=== PATIENT | female | born 2000 | race Caucasian/White ===

== ENCOUNTER 2018-08-21 13:49 | Emergency (ER) | payer OTHER ==
[2018-08-21 13:57] VITALS: BP 136/73
--- NOTE | 2018-08-21 14:28 | ER Document Report ---
ED General - General Chief Complaint: Abdominal Pain Stated Complaint: ABDOMINAL PAIN Time Seen by Provider: 08/21/18 14:07 Mode of Arrival: Ambulatory Information source: Patient Cannot obtain history due to: Unstable vital signs Notes: Chief complaint: Abdominal pain History of complain:( obtained from----patient) 18 years old female suddenly stood up from a seated position felt sharp pain over the right lower abdominal region. She has similar pain 2 months ago and was completely evaluated with CTs and colonoscopy with no positive finding. The pain is increased in intensity whenever she moves around. Which is sharp. Onset: As above Duration: Just prior to arrival Severity: Moderate Quality: Sharp Context: Strain Exacerbating factor and relieving factors: Movement REVIEW OF SYSTEMS: CONSTITUTIONAL : Denies fever, chills, or sweats. Denies recent illness. EENT: Denies eye, ear, throat, or mouth pain or symptoms. Denies nasal or sinus congestion or discharge. Denies throat, tongue, or mouth swelling or difficulty swallowing. CARDIOVASCULAR: Denies chest pain. Denies palpitations or racing or irregular heart beat. Denies ankle edema. RESPIRATORY: Denies cough, cold, or chest congestion. Denies shortness of breath, difficulty breathing, or wheezing. GASTROINTESTINAL: Denies distention. Denies nausea, vomiting, or diarrhea. Denies blood in vomitus, stools, or per rectum. Denies black, tarry stools. Denies constipation. GENITOURINARY: Denies difficulty urinating, painful urination, burning, frequency, blood in urine, or discharge. FEMALE GENITOURINARY: Denies vaginal bleeding, heavy or abnormal periods, irregular periods. Denies vaginal discharge or odor. MUSCULOSKELETAL: Denies back or neck pain or stiffness. Denies joint pain or swelling. SKIN: Denies rash, lesions or sores. HEMATOLOGIC : Denies easy bruising or bleeding. LYMPHATIC: Denies swollen, enlarged glands. NEUROLOGICAL: Denies confusion or altered mental status. Denies passing out or loss of consciousness. Denies dizziness or lightheadedness. Denies headache. Denies weakness or paralysis or loss of use of either side. Denies problems with gait or speech. Denies sensory loss, numbness, or tingling. Denies seizures. PSYCHIATRIC: Denies anxiety or stress. Denies depression, suicidal ideation, or homicidal ideation. ALL OTHER SYSTEMS REVIEWED AND NEGATIVE. PHYSICAL EXAMINATION: GENERAL: Well-appearing, well-nourished and in no acute distress. HEAD: Atraumatic, normocephalic. EYES: Pupils equal round and reactive to light, extraocular movements intact, conjunctiva are normal. ENT: Nares patent, oropharynx clear without exudates. Moist mucous membranes. NECK: Normal range of motion, supple without lymphadenopathy LUNGS: Breath sounds clear to auscultation bilaterally and equal. No wheezes rales or rhonchi. HEART: Regular rate and rhythm without murmurs ABDOMEN: Sharp tenderness over the right lower rectus abdominal muscles are noted. Soft, nontender, nondistended abdomen. No guarding, no rebound. No masses appreciated. Examination of genitals-deferred Musculoskeletal: Normal range of motion, no pitting or edema. No cyanosis. NEUROLOGICAL: Cranial nerves grossly intact. Normal speech, normal gait. Normal sensory, motor exams PSYCH: Normal mood, normal affect. SKIN: Warm, Dry, normal turgor, no rashes or lesions noted. Dictation was performed using [employer] voice recognition software TRAVEL OUTSIDE OF THE [place] IN LAST 30 DAYS: No - HPI Notes: Dictated - Related Data Allergies/Adverse Reactions: latex Allergy (Verified 08/21/18 13:53) morphine Allergy (Verified 08/21/18 13:53) Sulfa (Sulfonamide Antibiotics) Allergy (Verified 08/21/18 13:53) Past Medical History - Social History Smoking Status: Never Smoker Chew tobacco use (# tins/day): No Frequency of alcohol use: Occasional Drug Abuse: None Lives with: Family Family History: Reviewed & Not Pertinent Patient has suicidal ideation: No Patient has homicidal ideation: No Renal/ Medical History: Denies: Hx Peritoneal Dialysis Past Surgical History: Reports: Hx Kidney (Renal Surgery) Review of Systems - Review of Systems Notes: Dictated Physical Exam - Vital signs Vitals: Temp Pulse Resp BP Pulse Ox 97.6 F 113 H 18 136/73 H 98 08/21/18 13:56 08/21/18 13:56 08/21/18 13:56 08/21/18 13:56 08/21/18 13:56 - Notes Notes: Dictated Course - Vital Signs Vital signs: Temp Pulse Resp BP Pulse Ox 97.6 F 113 H 18 136/73 H 98 08/21/18 13:56 08/21/18 13:56 08/21/18 13:56 08/21/18 13:56 08/21/18 13:56 Discharge - Discharge Clinical Impression: Strain of rectus abdominis muscle Qualifiers: Encounter type: initial encounter Qualified Code(s): S39.011A - Strain of muscle, fascia and tendon of abdomen, initial encounter Condition: Fair Instructions: Abdominal Pain ([facility]) Prescriptions: Baclofen [Baclofen 10 mg Tablet] 10 mg PO TID #30 tab Diazepam [Valium 2 mg Tablet] 2 mg PO QSHIFT #7 tablet Prednisone [Deltasone] 20 mg PO DAILY #5 tablet
== END 2018-08-21 14:28 | disposition home or self-care (01) ==
LOC: ER 13:49
DX: S39.011A Strain of muscle, fascia and tendon of abdomen, initial encounter (principal); X58.XXXA Exposure to other specified factors, initial encounter; Z91.040 Latex allergy status; Z88.6 Allergy status to analgesic agent; Z88.2 Allergy status to sulfonamides
CPT/HCPCS: 99284

== ENCOUNTER 2020-11-03 13:00 | Emergency (ER) | payer OTHER ==
--- NOTE | 2020-11-03 14:27 | ER Document Report ---
ED Medical Screen (RME) - General Chief Complaint: Leg Swelling Stated Complaint: RIGHT LEG SWELLING Primary Care Provider: MATT HINDS MD [Primary Care Provider] - Follow up as needed TRAVEL OUTSIDE OF THE [place] IN LAST 30 DAYS: No - HPI Notes: 11/03/20 14:27 Rapid Medical Exam HPI: 20-year-old female who is 33 weeks presents to the ER complaining of right lower extremity swelling and pain for the past couple days. She has noticed bilateral pedal edema recently but right leg is more significant and does have aching pain to it. She spoke with her OB and they recommended that she go to the emergency room to have an ultrasound to rule out a DVT. No history of DVT. She denies chest pains or shortness of breath changes. She does have some baseline shortness of breath related to light without sudden change. Of note in triage she does have a systolic blood pressure around 134. She has no history of hypertension or preeclampsia that she is aware of. I discussed this with the patient and she did say that her OB did have concerns of that and the plan on further evaluating it once they rule out a DVT. She sees [facility]. Patient abdominal pain/cramping/vaginal bleeding/fevers. Physical Exam: GENERAL: Well-appearing, well-nourished and in no acute distress. HEAD: Atraumatic, normocephalic. ENT: Moist mucous membranes. RESP: Respirations even and unlabored CV- Regular rate. NEURO: No focal neurological deficits. Moves all extremities spontaneously and on command. My involvement in this patients care was limited to a rapid initial assessment. A comprehensive ED assessment and evaluation of the patient, analysis of test results, treatment, and completion of the medical decision making process will be performed by other ER providers. - Related Data Allergies/Adverse Reactions: ciprofloxacin [From Cipro] Allergy (Verified 11/03/20 14:19) latex Allergy (Verified 08/21/18 13:53) morphine Allergy (Verified 08/21/18 13:53) oxycodone Allergy (Verified 11/03/20 14:19) Sulfa (Sulfonamide Antibiotics) Allergy (Verified 08/21/18 13:53) Past Medical History Renal/ Medical History: Denies: Hx Peritoneal Dialysis Past Surgical History: Reports: Hx Kidney (Renal Surgery) Physical Exam - Vital signs Vitals: Temp Pulse Resp BP Pulse Ox 98.6 F 91 18 134/68 H 100 11/03/20 13:21 11/03/20 13:21 11/03/20 13:21 11/03/20 13:21 11/03/20 13:21 Course - Vital Signs Vital signs: Temp Pulse Resp BP Pulse Ox 98.6 F 91 18 134/68 H 100 11/03/20 13:21 11/03/20 13:21 11/03/20 13:21 11/03/20 13:21 11/03/20 13:21 Doctor's Discharge - Discharge Referrals: MATT HINDS MD [Primary Care Provider] - Follow up as needed
[2020-11-03 15:17] LABS: HEMATOCRIT 31.9 % (36.0-47.0); HEMOGLOBIN 10.8 g/dL (12.0-15.5); MEAN CORPUSCULAR HEMOGLOBIN 30.6 pg (27.0-33.4); MEAN CORPUSCULAR HGB CONC 33.9 g/dL (32.0-36.0); MEAN CORPUSCULAR VOLUME 90 fl (80-97); PLATELET COUNT 208 10^3/uL (150-450); RED BLOOD COUNT 3.53 10^6/uL (3.72-5.28); RED CELL DISTRIBUTION WIDTH 13.9 % (11.5-14.0); WHITE BLOOD COUNT 12.5 10^3/uL (4.0-10.5)
[2020-11-03 15:35] LABS: ABSOLUTE LYMPHOCYTES# (MANUAL) 1.4 10^3/uL (0.5-4.7); ABSOLUTE MONOCYTES # (MANUAL) 0.6 10^3/uL (0.1-1.4); APPEARANCE,URINE SLIGHTLY-CLOUDY; BAND NEUTROPHILS % (MANUAL) 2 % (3-5); BASOPHILS % (MANUAL) 0 % (0-2); BILIRUBIN,URINE NEGATIVE (NEGATIVE); BLOOD UREA NITROGEN 3 mg/dL (7-20); CALCIUM 9.2 mg/dL (8.4-10.2); CARBON DIOXIDE 25 mmol/L (22-30); CHLORIDE 109 mmol/L (98-107); COLOR,URINE YELLOW; EOSINOPHILS % (MANUAL) 0 % (0-6); GLUCOSE 93 mg/dL (75-110); GLUCOSE, URINE 50 mg/dL (NEGATIVE); KETONES,URINE NEGATIVE (NEGATIVE); LEUKOCYTE ESTERASE,URINE TRACE (NEGATIVE); LYMPHOCYTES % (MANUAL) 11 % (13-45); METAMYELOCYTES % (MANUAL) 1 % (0-1); MONOCYTES % (MANUAL) 5 % (3-13); NITRITE,URINE NEGATIVE (NEGATIVE); POTASSIUM 3.4 mmol/L (3.6-5.0); PROTEIN,URINE NEGATIVE (NEGATIVE); SEGMENTED NEUTROPHILS % (MAN) 81 % (42-78); TOTAL CELLS COUNTED 100; URINE SPECIFIC GRAVITY 1.009; UROBILINOGEN,URINE NEGATIVE mg/dL (<2.0)
[2020-11-03 15:36] LABS: PLATELET COMMENT ADEQUATE; POLYCHROMASIA SLIGHT; TOXIC GRANULATION SLIGHT
[2020-11-03 15:57] LABS: ANION GAP 3 (5-19)
--- NOTE | 2020-11-03 16:06 | RADIOLOGY REPORT (SQ) ---
EXAM DESCRIPTION: VENOUS UNILATERAL LOWER IMAGES COMPLETED DATE/TIME: 11/03/2020 3:54 pm REASON FOR STUDY: right lower leg swelling COMPARISON: None. TECHNIQUE: Dynamic and static ramon scale and color images acquired of the right leg venous system. S elected spectral images acquired with additional compression and augmentation maneuvers. The contrala teral common femoral vein and saphenofemoral junction were also imaged. Images stored on PACS. LIMITATIONS: None. FINDINGS: COMMON FEMORAL: Normal phasicity, compression and augmentation. No visualized echogenic ma terial on ramon scale. No defects on color images. FEMORAL: Normal compression and augmentation. No visualized echogenic material on ramon scale. No defe cts on color images. POPLITEAL: Normal compression, augmentation. No visualized echogenic material on ramon scale. No defec ts on color images. CALF VESSELS: Normal compression, augmentation. No visualized echogenic material on ramon scale. No de fects on color images. GSV and SSV: Normal compression, augmentation. No visualized echogenic material on ramon scale. No def ects on color images. ANY DEEP VENOUS INSUFFICIENCY: Not evaluated. ANY EVIDENCE OF POPLITEAL CYST: No. OTHER: No other significant finding. CONTRALATERAL COMMON FEMORAL VEIN AND SAPHENOFEMORAL JUNCTION: Normal phasicity, compression and augmentation. No visualized echogenic material on ramon scale. No de fects on color images. IMPRESSION: NO EVIDENCE OF DVT OR SVT IN THE RIGHT LEG. TECHNICAL DOCUMENTATION: JOB ID: [id number] 2010 [employer]- All Rights Reserved Reading location - IP/workstation name: [email or web address]
[2020-11-03] MEDS ORDERED: POTASSIUM CHLORIDE 20 MEQ PACKET PO ONE (16:47)
--- NOTE | 2020-11-03 16:56 | ER Document Report ---
Entered by WESTLEY STARR SCRIBE 11/03/20 [id number] Acting as scribe for:SHEYLA SUTTON DO ED General - General Chief Complaint: OB Problem (>20wk) Stated Complaint: RIGHT LEG SWELLING Time Seen by Provider: 11/03/20 16:17 Primary Care Provider: MATT HINDS MD [Primary Care Provider] - Follow up as needed Information source: Patient Notes: This 20 year old female patient presents to the emergency department today with complaints of swelling to her bilateral feet and right leg. Patient states she is 33 weeks , G1, and follows with [facility]. Denies complications during her , except for anemia, and is on iron pills for this. Denies any spotting or bleeding. Patient reports a OB appointment in a week. Patient states she is on vitamins. TRAVEL OUTSIDE OF THE [place] IN LAST 30 DAYS: No - Related Data Allergies/Adverse Reactions: ciprofloxacin [From Cipro] Allergy (Verified 11/03/20 14:19) latex Allergy (Verified 08/21/18 13:53) morphine Allergy (Verified 08/21/18 13:53) oxycodone Allergy (Verified 11/03/20 14:19) Sulfa (Sulfonamide Antibiotics) Allergy (Verified 08/21/18 13:53) Home Medications: . pantoprazole. iron Past Medical History - General Information source: Patient - Social History Smoking Status: Unknown if Ever Smoked Family History: Reviewed & Not Pertinent Patient has homicidal ideation: No Renal/ Medical History: Denies: Hx Peritoneal Dialysis Past Surgical History: Reports: Hx Kidney (Renal Surgery) Review of Systems - Review of Systems Constitutional: No symptoms reported EENT: No symptoms reported Cardiovascular: No symptoms reported Respiratory: No symptoms reported Gastrointestinal: No symptoms reported Genitourinary: No symptoms reported Female Genitourinary: See HPI, . denies: Vaginal bleeding Musculoskeletal: See HPI, Leg swelling - R, Other - Bilateral feet swelling Skin: No symptoms reported Hematologic/Lymphatic: See HPI, Anemia - Taking iron pills Neurological/Psychological: No symptoms reported -: Yes All other systems reviewed and negative Physical Exam - Vital signs Vitals: Temp Pulse Resp BP Pulse Ox 98.6 F 91 18 134/68 H 100 11/03/20 13:21 11/03/20 13:21 11/03/20 13:21 11/03/20 13:21 11/03/20 13:21 - General General appearance: Appears well, Alert - HEENT Head: Normocephalic, Atraumatic Eyes: Normal Pupils: PERRL - Respiratory Respiratory status: No respiratory distress Chest status: Nontender Breath sounds: Normal Chest palpation: Normal - Cardiovascular Rhythm: Regular Heart sounds: Normal auscultation Murmur: No - Abdominal Inspection: Gravid female, Other - soft Bowel sounds: Normal Tenderness: Nontender - Extremities General upper extremity: Normal inspection, Normal ROM Notes: Trace peripheral edema to the bilateral lower extremities. - Neurological Neuro grossly intact: Yes Cognition: Normal Orientation: AAOx4 Monique Coma Scale Eye Opening: Spontaneous Monique Coma Scale Verbal: Oriented [place] Coma Scale Motor: Obeys Commands [place] Coma Scale Total: 15 Speech: Normal Sensory: Normal - Psychological Associated symptoms: Normal affect, Normal mood - Skin Skin Temperature: Warm Skin Moisture: Dry Skin Color: Normal Course - Re-evaluation Re-evalutation: 11/03/20 16:50 MDM 20 year old primagravida with right leg swelling. Bilateral mild edema. BP good. No protein in urine. She sees [facility] and has follow up next week. Discussed follow up and she expressed understanding. - Vital Signs Vital signs: Temp Pulse Resp BP Pulse Ox 98.6 F 74 16 156/78 H 100 11/03/20 13:21 11/03/20 16:59 11/03/20 16:59 11/03/20 16:59 11/03/20 16:59 - Laboratory Results Result Diagrams: 11/03/20 14:50 11/03/20 14:50 Laboratory Results Interpreted: 11/03/20 11/03/20 11/03/20 14:50 14:50 14:50 WBC 12.5 H RBC 3.53 L Hgb 10.8 L Hct 31.9 L Seg Neuts % (Manual) 81 H Band Neutrophils % 2 L Lymphocytes % (Manual) 11 L Abs Neuts (Manual) 10.5 H Potassium 3.4 L Chloride 109 H Anion Gap 3 L BUN 3 L Creatinine 0.42 L Urine Glucose (UA) 50 H Ur Leukocyte Esterase TRACE H Critical Laboratory Results Reviewed: No Critical Results - Radiology Results Critical Radiology Results Reviewed: No Critical Results Discharge - Discharge Clinical Impression: Hypokalemia Condition: Stable Disposition: HOME, SELF-CARE Instructions: Hypokalemia ([facility]), Leg Pain Nonspecific ([facility]) Additional Instructions: Your ultrasound of the leg was normal. There was no evidence of a blood clot. Elevate your legs. Your potassium was a bit low and should likely be rechecked in 1-2 weeks. Keep your follow up with OB next week as scheduled. You had a bit of anemia on your blood work as we discussed. You may take tylenol for pain or inflamation. Continue the vitamins. Referrals: MATT HINDS MD [Primary Care Provider] - Follow up as needed I personally performed the services described in the documentation, reviewed and edited the documentation which was dictated to the scribe in my presence, and it accurately records my words and actions.
[2020-11-03 16:59] VITALS: BP 156/78
== END 2020-11-03 16:59 | disposition home or self-care (01) ==
LOC: ER 13:00
DX: O26.893 Other specified pregnancy related conditions, third trimester (principal); E87.6 Hypokalemia; R60.0 Localized edema; Z3A.33 33 weeks gestation of pregnancy; Z88.1 Allergy status to other antibiotic agents; Z88.2 Allergy status to sulfonamides; Z88.8 Allergy status to other drugs, medicaments and biological substances; Z79.899 Other long term (current) drug therapy
CPT/HCPCS: 99284; 36415; 85025; 80048; 81001; 93971; J3490